=== PATIENT | female | born 1955 | race Caucasian/White ===

== ENCOUNTER 2018-04-30 11:23 | Emergency (ER) | payer BC ==
--- NOTE | 2018-04-30 12:02 | ER Document Report ---
ED Medical Screen (RME) - General Chief Complaint: Numbness Stated Complaint: NUMBNESS IN HEAD Time Seen by Provider: 04/30/18 11:46 Notes: RAPID MEDICAL EVALUATION DISCLOSURE I have seen this patient as part of a Rapid Medical Evaluation and, if applicable, placed any initially appropriate orders. The patient will be seen and fully evaluated, including a full history and physical exam, by a provider ( in Main ED or Fast Track) when a room becomes available. 62-year-old female PMH carotid stenosis 70% here with complaints of right facial and right upper extremity numbness ongoing for the past 4 hours. She did have a slight headache this morning but this has resolved. She denies any weakness of the extremities. She has surgery upcoming in the near future for her 70% carotid stenosis and was wondering if today's symptoms may be related. She does take Plavix. EXAM Right facial sensory deficit present Right upper extremity sensory deficit present Motor strength 5/5 all extremities Sensation intact all extremities other than RUE TRAVEL OUTSIDE OF THE [place] IN LAST 30 DAYS: No - Related Data Allergies/Adverse Reactions: No Known Allergies Allergy (Verified 04/30/18 11:53) Past Medical History - Social History Chew tobacco use (# tins/day): No Frequency of alcohol use: Rare Drug Abuse: None - Past Medical History Cardiac Medical History: Reports: Hx Hypercholesterolemia, Hx Hypertension Pulmonary Medical History: Reports: Hx Asthma, Hx COPD Renal/ Medical History: Denies: Hx Peritoneal Dialysis Malignancy Medical History: Reports: Hx Lung Cancer Musculoskeltal Medical History: Reports Hx Arthritis, Reports Hx Musculoskeletal Trauma Traumatic Medical History: Reports: Hx Fractures - arm and toe - Immunizations Hx Diphtheria, Pertussis, Tetanus Vaccination: Yes Physical Exam - Vital signs Vitals: Temp Pulse Resp BP Pulse Ox 98.2 F 63 20 152/76 H 95 04/30/18 11:32 04/30/18 11:32 04/30/18 11:32 04/30/18 11:32 04/30/18 11:32 Course - Vital Signs Vital signs: Temp Pulse Resp BP Pulse Ox 98.2 F 63 20 152/76 H 95 04/30/18 11:32 04/30/18 11:32 04/30/18 11:32 04/30/18 11:32 04/30/18 11:32
[2018-04-30 12:17] LABS: ABSOLUTE EOSINOPHILS # (AUTO) 0.1 10^3/uL (0.0-0.6); ABSOLUTE LYMPHOCYTES (AUTO) 1.9 10^3/uL (0.5-4.7); ABSOLUTE MONOCYTES (AUTO) 0.3 10^3/uL (0.1-1.4); ABSOLUTE NEUT (AUTO) 3.2 10^3/uL (1.7-8.2); BASOPHILS % (AUTO) 0.7 % (0-2); EOSINOPHILS % (AUTO) 1.6 % (0-6); HEMATOCRIT 36.8 % (36.0-47.0); HEMOGLOBIN 12.4 g/dL (12.0-15.5); LYMPHOCYTES % (AUTO) 34.6 % (13-45); MEAN CORPUSCULAR HEMOGLOBIN 30.2 pg (27.0-33.4); MEAN CORPUSCULAR HGB CONC 33.6 g/dL (32.0-36.0); MEAN CORPUSCULAR VOLUME 90 fl (80-97); MONOCYTES % (AUTO) 5.3 % (3-13); PLATELET COUNT 238 10^3/uL (150-450); RED BLOOD COUNT 4.09 10^6/uL (3.72-5.28); RED CELL DISTRIBUTION WIDTH 13.5 % (11.5-14.0); SEGMENTED NEUTROPHILS % (AUTO) 57.8 % (42-78); TOTAL CELLS COUNTED % (AUTO) 100 %; WHITE BLOOD COUNT 5.6 10^3/uL (4.0-10.5)
[2018-04-30 12:24] LABS: INTERNATIONAL RATION (INR) 0.95; PROTHROMBIN TIME 13.2 SEC (11.4-15.4)
[2018-04-30 12:37] LABS: ALANINE AMINOTRANSFERASE 32 U/L (9-52); ALBUMIN 4.3 g/dL (3.5-5.0); ALKALINE PHOSPHATASE 110 U/L (38-126); ANION GAP 13 (5-19); ASPARTATE AMINO TRANSFERASE 25 U/L (14-36); BILIRUBIN,DIRECT 0.4 mg/dL (0.0-0.4); BILIRUBIN,TOTAL 0.5 mg/dL (0.2-1.3); BLOOD UREA NITROGEN 14 mg/dL (7-20); CALCIUM 9.7 mg/dL (8.4-10.2); CARBON DIOXIDE 26 mmol/L (22-30); CHLORIDE 110 mmol/L (98-107); GLUCOSE 108 mg/dL (75-110); POTASSIUM 4.6 mmol/L (3.6-5.0); SODIUM 148.6 mmol/L (137-145)
--- NOTE | 2018-04-30 15:29 | RADIOLOGY REPORT (SQ) ---
EXAM DESCRIPTION: CT HEAD WITHOUT COMPLETED DATE/TIME: 04/30/2018 3:06 pm REASON FOR STUDY: eval infarct bleed, R facial RUE numbness COMPARISON: Subsequent CT angio head and neck, same day TECHNIQUE: Axial images acquired through the brain without intravenous contrast. Images reviewed wi th bone, brain and subdural windows. Additional sagittal and coronal reconstructions were generated. Images stored on PACS. All CT scanners at this facility use dose modulation, iterative reconstruction, and/or weight based d osing when appropriate to reduce radiation dose to as low as reasonably achievable (ALARA). [facility]: Dose Right [facility]: CareDose [facility]: Dose Right [facility]: Teradose 4D [facility]: [employer] RADIATION DOSE: CT Rad equipment meets quality standard of care and radiation dose reduction techniq ues were employed. CTDIvol: 53.2 mGy. DLP: 1070 mGy-cm. mGy. LIMITATIONS: None. FINDINGS: VENTRICLES: Normal size and contour. CEREBRUM: No masses. No hemorrhage. No midline shift. No evidence for acute infarction. Normal gra y/white matter differentiation. No areas of low density in the white matter. CEREBELLUM: No masses. No hemorrhage. No alteration of density. No evidence for acute infarction. EXTRAAXIAL SPACES: No fluid collections. No masses. ORBITS AND GLOBE: No intra- or extraconal masses. Normal contour of globe without masses. CALVARIUM: No fracture. PARANASAL SINUSES: No fluid or mucosal thickening. SOFT TISSUES: No mass or hematoma. OTHER: No other significant finding. IMPRESSION: NORMAL BRAIN CT WITHOUT CONTRAST. EVIDENCE OF ACUTE STROKE: NO. COMMENT: Quality ID # [id number]: Final reports with documentation of one or more dose reduction techniques (e.g., Automated exposure control, adjustment of the mA and/or kV according to patient size, use of iterative reconstruction technique) TECHNICAL DOCUMENTATION: JOB ID: [id number] [employer]- All Rights Reserved Reading location - IP/workstation name: [facility] [email or web address]]
--- NOTE | 2018-04-30 15:35 | RADIOLOGY REPORT (SQ) ---
EXAM DESCRIPTION: CTA HEAD; CTA NECK COMPLETED DATE/TIME: 04/30/2018 3:06 pm REASON FOR STUDY: h/o carotid stenosis; R facial/RUE numbness COMPARISON: None. TECHNIQUE: Axial dynamic scanning technique with dynamic contrast enhancement through the intracran ial and extra-cranial carotid and vertebral arteries. Multiplanar reconstruction. 3-D MIPS and Vol ume-rendered images acquired at the workstation and saved to PACS. Images are reviewed in soft tis murray, bone, lung windows. All CT scanners at this facility use dose modulation, iterative reconstruction, and/or weight based d osing when appropriate to reduce radiation dose to as low as reasonably achievable (ALARA). [facility]: Dose Right [facility]: CareDose [facility]: Dose Right [facility]: Teradose 4D [facility]: [employer] CONTRAST TYPE AND DOSE: contrast/concentration: Isovue 370.00 mg/ml; Total Contrast Delivered: 70.0 ml; Total Saline Delivered: 75.0 ml RENAL FUNCTION: Creatinine 0.7 LIMITATIONS: None. FINDINGS: EXTRACRANIAL CIRCULATION: AORTIC ARCH: Normal three-vessel origin. Bilateral subclavian arteries are patent. No dissection. RIGHT CAROTIDS: Right common carotid artery is unremarkable. Calcific plaque is present at the right carotid bifurcation with less than 50% proximal ICA stenosis. Cervical internal carotid artery is u nremarkable. RIGHT VERTEBRAL: Patent. No dissection. LEFT CAROTIDS: Left common carotid artery is unremarkable. Calcific plaque is present at the left ca rotid bifurcation with 50 to 69% proximal left ICA stenosis. Left cervical internal carotid artery i s otherwise unremarkable. LEFT VERTEBRAL: Patent. No dissection. LUNG APICES, NECK SOFT TISSUES: Obstructive lung disease. No neck masses or adenopathy. Airway hendricks nt. Diffuse degenerative changes cervical spine. OTHER: 3-D reconstructions confirm findings. INTRACRANIAL CIRCULATION: ANTERIOR CIRCULATION: Bilateral intracranial internal carotid arteries are unremarkable. Normal ant erior cerebral arteries, middle cerebral arteries bilaterally. Posterior communicating arteries are not visualized. POSTERIOR CIRCULATION: Intracranial vertebral arteries, basilar artery unremarkable. Cerebellar and posterior cerebral arteries are normal. BRAIN IMAGING WITH CONTRAST: No abnormal brain parenchymal enhancement. No CT evidence of acute lar ge territory ischemic change. OTHER: 3-D reconstructions confirm findings IMPRESSION: No flow significant stenosis at the carotid bifurcations. About 50% stenosis proximal r ight ICA, 50 to 69% stenosis proximal left ICA. Codominant vertebral arteries in the neck Unremarkable [place] of [place] and posterior circulation intracranially. No CT evidence of abnormal brain parenchymal enhancement. COMMENT: Quality ID #[id number]: Measurements of distal internal carotid diameter were used as the denomina tor for stenosis measurement. TECHNICAL DOCUMENTATION: JOB ID: [id number] Quality ID # [id number]: Final reports with documentation of one or more dose reduction techniques (e.g., Au tomated exposure control, adjustment of the mA and/or kV according to patient size, use of iterative reconstruction technique) 2010 [employer]- All Rights Reserved Reading location - IP/workstation name: [email or web address]
--- NOTE | 2018-04-30 15:35 | RADIOLOGY REPORT (SQ) ---
EXAM DESCRIPTION: CTA HEAD; CTA NECK COMPLETED DATE/TIME: 04/30/2018 3:06 pm REASON FOR STUDY: h/o carotid stenosis; R facial/RUE numbness COMPARISON: None. TECHNIQUE: Axial dynamic scanning technique with dynamic contrast enhancement through the intracran ial and extra-cranial carotid and vertebral arteries. Multiplanar reconstruction. 3-D MIPS and Vol ume-rendered images acquired at the workstation and saved to PACS. Images are reviewed in soft tis murray, bone, lung windows. All CT scanners at this facility use dose modulation, iterative reconstruction, and/or weight based d osing when appropriate to reduce radiation dose to as low as reasonably achievable (ALARA). [facility]: Dose Right [facility]: CareDose [facility]: Dose Right [facility]: Teradose 4D [facility]: [employer] CONTRAST TYPE AND DOSE: contrast/concentration: Isovue 370.00 mg/ml; Total Contrast Delivered: 70.0 ml; Total Saline Delivered: 75.0 ml RENAL FUNCTION: Creatinine 0.7 LIMITATIONS: None. FINDINGS: EXTRACRANIAL CIRCULATION: AORTIC ARCH: Normal three-vessel origin. Bilateral subclavian arteries are patent. No dissection. RIGHT CAROTIDS: Right common carotid artery is unremarkable. Calcific plaque is present at the right carotid bifurcation with less than 50% proximal ICA stenosis. Cervical internal carotid artery is u nremarkable. RIGHT VERTEBRAL: Patent. No dissection. LEFT CAROTIDS: Left common carotid artery is unremarkable. Calcific plaque is present at the left ca rotid bifurcation with 50 to 69% proximal left ICA stenosis. Left cervical internal carotid artery i s otherwise unremarkable. LEFT VERTEBRAL: Patent. No dissection. LUNG APICES, NECK SOFT TISSUES: Obstructive lung disease. No neck masses or adenopathy. Airway hendricks nt. Diffuse degenerative changes cervical spine. OTHER: 3-D reconstructions confirm findings. INTRACRANIAL CIRCULATION: ANTERIOR CIRCULATION: Bilateral intracranial internal carotid arteries are unremarkable. Normal ant erior cerebral arteries, middle cerebral arteries bilaterally. Posterior communicating arteries are not visualized. POSTERIOR CIRCULATION: Intracranial vertebral arteries, basilar artery unremarkable. Cerebellar and posterior cerebral arteries are normal. BRAIN IMAGING WITH CONTRAST: No abnormal brain parenchymal enhancement. No CT evidence of acute lar ge territory ischemic change. OTHER: 3-D reconstructions confirm findings IMPRESSION: No flow significant stenosis at the carotid bifurcations. About 50% stenosis proximal r ight ICA, 50 to 69% stenosis proximal left ICA. Codominant vertebral arteries in the neck Unremarkable [place] of [place] and posterior circulation intracranially. No CT evidence of abnormal brain parenchymal enhancement. COMMENT: Quality ID #[id number]: Measurements of distal internal carotid diameter were used as the denomina tor for stenosis measurement. TECHNICAL DOCUMENTATION: JOB ID: [id number] Quality ID # [id number]: Final reports with documentation of one or more dose reduction techniques (e.g., Au tomated exposure control, adjustment of the mA and/or kV according to patient size, use of iterative reconstruction technique) 2010 [employer]- All Rights Reserved Reading location - IP/workstation name: [email or web address]
--- NOTE | 2018-04-30 16:11 | ER Document Report ---
ED Neuro Symptoms/Deficit - General Chief Complaint: Numbness Stated Complaint: NUMBNESS IN HEAD Time Seen by Provider: 04/30/18 11:46 Notes: Patient says that she was just sitting outside this morning about 8 AM when suddenly the entire right side of her head went "numb". The numbness extended down the right side of the neck to the right shoulder and into the right arm. She was able to continue moving the arm and the associated body parts. Did not have any problems with her vision, speech, or balance. 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 She was having symptoms of numbness that led to the diagnosis being established of her vascular insufficiency. Patient says the symptoms have almost cleared up now. She never had any problem with her balance and was able to walk. Residual light headache. Denies nausea or vomiting.. No recent illness. No fevers. Patient has no known history of heart disease. Is a cigarette smoker. TRAVEL OUTSIDE OF THE [place] IN LAST 30 DAYS: No - Related Data Allergies/Adverse Reactions: No Known Allergies Allergy (Verified 04/30/18 11:53) Past Medical History - Social History Smoking Status: Current Every Day Smoker Chew tobacco use (# tins/day): No Frequency of alcohol use: Rare Drug Abuse: None Family History: Arthritis, CAD, DM, Hyperlipidemia, Hypertension Patient has suicidal ideation: No Patient has homicidal ideation: No - Past Medical History Cardiac Medical History: Reports: Hx Hypercholesterolemia, Hx Hypertension Pulmonary Medical History: Reports: Hx Asthma, Hx COPD Malignancy Medical History: Reports: Hx Lung Cancer Musculoskeltal Medical History: Reports Hx Arthritis, Reports Hx Musculoskeletal Trauma Traumatic Medical History: Reports: Hx Fractures - arm and toe - Immunizations Hx Diphtheria, Pertussis, Tetanus Vaccination: Yes Review of Systems - Review of Systems Notes: REVIEW OF SYSTEMS: CONSTITUTIONAL : Denies fever. EENT: Denies eye, ear, nose or mouth or throat pain or other symptoms. CARDIOVASCULAR: Denies chest pain. RESPIRATORY: Denies cough, chest congestion, or shortness of breath. GASTROINTESTINAL: Denies abdominal pain or nausea, vomiting, or diarrhea. GENITOURINARY: Denies difficulty or painful urinating, urinary frequency, blood in urine. MUSCULOSKELETAL: Denies back or neck pain. Denies joint pain or swelling. SKIN: Denies rash or skin lesions. NEUROLOGICAL: See HPI. Denies LOC or altered mental status. Light headache. Denies motor deficits. ALL OTHER SYSTEMS REVIEWED AND NEGATIVE. Physical Exam - Vital signs Vitals: Temp Pulse Resp BP Pulse Ox 98.2 F 63 20 152/76 H 95 04/30/18 11:32 04/30/18 11:32 04/30/18 11:32 04/30/18 11:32 04/30/18 11:32 Interpretation: Normal - Notes Notes: PHYSICAL EXAMINATION: GENERAL: Well-appearing, in no acute distress. Anxious. Looks much older than stated age. HEAD: Atraumatic, normocephalic. EYES: Pupils equal round and reactive to light, extraocular movements intact. ENT: oropharynx clear without exudates. Moist mucous membranes. NECK: Normal range of motion, supple. I did not hear any bruits when I listen to both carotid arteries in the neck. LUNGS: Breath sounds clear and equal bilaterally. HEART: Regular rate and rhythm without murmurs. ABDOMEN: Soft, nontender. No guarding or rebound. No masses. BACK: No tenderness throughout entire back. EXTREMITIES: Normal range of motion without pain. NEUROLOGICAL: Normal speech, normal gait. Normal sensory, motor, and reflex exams. Awake, alert, and oriented x3. PSYCH: Normal mood, normal affect. SKIN: Warm, dry, no rashes. Course - Re-evaluation Re-evalutation: 04/30/18 18:42 Patient symptoms all improved back to baseline normal for her. We obtained old CT studies from [facility] locally that were done a couple of weeks ago. We also obtained CT of the patient's head, CTA of the head and neck. Patient was shown to have some significant vascular disease and obstructions, but none appear to be life-threatening on the most mentioned on our studies here today is a 69% occlusion at the carotid artery bifurcation on the left. Patient is currently taking both aspirin as well as Plavix. She is going to be encouraged to continue to take those as prescribed. She also is being advised to follow-up with her primary care physician and other doctors in [place] as soon as possible. - Vital Signs Vital signs: Temp Pulse Resp BP Pulse Ox 98.2 F 63 18 136/80 H 100 04/30/18 11:32 04/30/18 11:32 04/30/18 16:00 04/30/18 16:00 04/30/18 16:00 - Laboratory Result Diagrams: 04/30/18 12:00 04/30/18 12:00 Laboratory results interpreted by me: 04/30/18 12:00 Sodium 148.6 H Chloride 110 H Discharge - Discharge Clinical Impression: Numbness, Paresthesia Condition: Stable Disposition: HOME, SELF-CARE Additional Instructions: Numbness or Paresthesia Definition: Numbness and tingling are decreased or abnormal sensations caused by altered sensory nerve function. Description: The feeling of having a foot "fall asleep" is a familiar one. This same combination of numbness and tingling can occur in any region of the body and may be caused by a wide variety of disorders. Sensations such as these , which occur without any associated stimulus, are called paresthesias. Other types of paresthesias include feelings of cold, warmth, burning, itching, and skin crawling. Causes: Sensation is carried to the brain by neurons (nerve cells) running from the outer parts of the body to the spinal cord in bundles called nerves. In the spinal cord, these neurons make connections with other neurons that run up to the brain. Paresthesias are caused by disturbances in the function of neurons in the sensory pathway. This disturbance can occur in the central nervous system (the brain and spinal cord), the nerve roots that are attached to the spinal cord, or the peripheral nervous system (nerves outside the brain and spinal cord). Peripheral disturbances are the most common cause of paresthesias. "Falling asleep" occurs when the blood supply to a nerve is cut off-a condition called ischemia. Ischemia usually occurs when an artery is compressed as it passes through a tightly flexed joint. Sleeping with the arms above the head or sitting with the legs tightly crossed frequently cause numbness and tingling. Direct compression of the nerve also causes paresthesias. Compression can be short-lived, as when a heavy backpack compresses the nerves passing across the shoulders. Compression may also be chronic. Chronic nerve compression occurs in entrapment syndromes. The most common example is carpal tunnel syndrome. Carpal tunnel syndrome occurs when the median nerve is compressed as it passes through a narrow channel in the wrist. Repetitive motion or prolonged vibration can cause the lining of the channel to swell and press on the nerve. Chronic nerve root compression, or radiculopathy, can occur in disk disease or spinal arthritis. Other causes of paresthesias related to disorders of the peripheral nerves include: * Metabolic or nutritional disturbances. These disturbances include diabetes, hypothyroidism (a condition caused by too little activity of the thyroid gland) , alcoholism, malnutrition, and vitamin B12 deficiency. Trauma. Trauma includes injuries that crush, sever, or pull on nerves. * Inflammation. * Connective tissue disease. These diseases include arthritis, systemic lupus erythematosus (a chronic inflammatory disease that affects many systems of the body, including the nervous system), polyarteritis nodosa (a vascular disease that causes widespread inflammation and ischemia of small and medium-size arteries), and Sj&ouml;gren's syndrome (a disorder marked by insufficient moisture in the tear ducts, salivary glands, and other glands). * Toxins. Toxins include heavy metals (metallic elements such as arsenic, lead, and mercury which can, in large amounts, cause poisoning), certain antibiotics and chemotherapy agents, solvents, and overdose of pyridoxine (vitamin B6). * Malignancy. * Infections. Infections include Lyme disease, human immunodeficiency virus (HIV ), and leprosy. * Hereditary disease. These diseases include Wvdzbku-Jdxla-Njzfw disease (a hereditary disorder that causes wasting of the leg muscles, resulting in malformation of the foot), porphyria (a group of inherited disorders in which there is abnormally increased production of substances called porphyrins), and Stas-Brown's syndrome (a hereditary disorder of the nerve root). Paresthesias can also be caused by central nervous system disturbances, including stroke, TIA (transient ischemic attack), tumor, trauma, multiple sclerosis, or infection. Symptoms: Sensory nerves supply or innervate particular regions of the body. Determining the distribution of symptoms is an important way to identify the nerves involved. For instance, the median nerve innervates the thumb, the first two fingers, half of the ring finger, and the part of the hand to which they connect. The ulnar nerve innervates the other half of the ring finger, the little finger, and the remainder of the hand. Distribution of symptoms may also aid diagnosis of the underlying disease. Diabetes usually causes a symmetrical "glove and stocking" distribution in the hands and feet. Multiple sclerosis may cause symptoms in several, widely areas. Other symptoms may accompany paresthesias, depending on the type and severity of the nerve disturbance. For instance, weakness may accompany damage to nerves that carry both sensory and motor neurons. (Motor neurons are those that carry messages outward from the brain.) Diagnosis: A careful history of the patient is needed for a diagnosis of paresthesias. The medical history should focus on the onset, duration, and location of symptoms. The history may also reveal current related medical problems and recent or past exposure to drugs, toxins, infection, or trauma. The family medical history may suggest a familial disorder. A work history may reveal repetitive motion, chronic vibration, or industrial chemical exposure. The physical and neurological examination tests for distribution of symptoms and alterations in reflexes, sensation, or strength. The distribution of symptoms may be mapped by successive stimulation over the affected area of the body. Lab tests for paresthesia may include blood tests and urinalysis to detect metabolic or nutritional abnormalities. Other tests are used to look for specific suspected causes. Nerve conduction velocity tests, electromyography, and imaging studies of the affected area may be employed. Nerve biopsy may be indicated in selected cases. Treatment: Treatment of paresthesias depends on the underlying cause. For limbs that have "fallen asleep," restoring circulation by stretching, exercising , or massaging the affected limb can quickly dissipate the numbness and tingling. If the paresthesia is caused by a chronic disease such as diabetes or occurs as a complication of treatments such as chemotherapy, most treatments are aimed at relieving symptoms. Anti-inflammatory drugs such as aspirin or ibuprofen are recommended if symptoms are mild. In more difficult cases, antidepressant drugs such as amitriptyline (Elavil) are sometimes prescribed. These drugs are given at a much lower dosage for this purpose than for relief of depression. They are thought to help because they alter the body's perception of pain. In severe cases, opium derivatives such as codeine can be prescribed. Currently trials are being done to determine whether treatment with human nerve growth factor will be effective in regenerating the damaged nerves. Alternative treatment: Several alternative treatments are available to help relieve symptoms of paresthesia. Nutritional therapy includes supplementation with B complex vitamins, especially vitamin B 12 (intramuscular injection of vitamin B12 is most effective). Vitamin supplements should be used cautiously however. Overdose of Vitamin B6 is one of the causes of paresthesias. People experiencing paresthesia should also avoid alcohol. Acupuncture and massage are said to relieve symptoms. Self-massage with aromatic oils is sometimes helpful. The application of topical ointments containing capsaicin, the substance that makes hot peppers hot, provides relief for some. It may also be helpful to wear loosely fitting shoes and clothing. None of these alternatives should be used in place of traditional therapy for the underlying condition. Prognosis: Treating the underlying disorder may reduce the occurrence of paresthesias. Paresthesias resulting from damaged nerves may persist throughout or even beyond the recovery period. The overall prognosis depends on the cause. Prevention: Preventing the underlying disorder may reduce the incidence of paresthesias. For those with frequent paresthesias caused by ischemia, changes in posture may help. NORMAL EXAM AND WORKUP: At this time, your examination and workup show no significant abnormality. No significant abnormal physical findings were noted. All laboratory, EKG, and imaging (x-ray, CT scans, ultrasound) studies that were ordered show no significant abnormality. Although your examination and all studies that were ordered showed no significant abnormal finding, there are no examinations and no studies that are 100% accurate. There is always the possibility that some abnormality could exist and not be detected with physical examination or within the limits and capabilities of laboratory and other studies. You should return or follow up as you were instructed on your visit today for further evaluation if your symptoms do not resolve. Stop Smoking You should stop smoking. The tar and chemicals in cigarette smoke are harmful. Smoking has been shown to cause: Emphysema and chronic bronchitis Lung cancer Cancer of the mouth, larynx, stomach, and pancreas Heart disease and stroke Stillbirths and miscarriage Premature aging In addition, smoking increases the chances of respiratory infections and ear infections in children of smokers, and increases the risk of cancer in persons exposed to second-hand smoke. Classes are available to help you stop smoking. If you are serious about wanting to quit, we can help arrange this therapy for you, or you can contact the local lung or cancer association. Try to stop smoking as soon as possible. Take a baby aspirin daily as you have been doing. Also, continue to take the Plavix that you are taking. Follow-up with your doctors, as scheduled. FOLLOW-UP CARE: If you have been referred to a physician for follow-up care, call the physician s office for an appointment as you were instructed or within the next two days. If you experience worsening or a significant change in your symptoms, notify the physician immediately or return to the Emergency Department at any time for re-evaluation. Referrals: RICK BRYANT MD [Primary Care Provider] - Follow up as needed
[2018-04-30 16:19] VITALS: BP 136/80
== END 2018-04-30 16:19 | disposition home or self-care (01) ==
LOC: ER 11:23
DX: I65.23 Occlusion and stenosis of bilateral carotid arteries (principal); R20.0 Anesthesia of skin; R20.2 Paresthesia of skin; R51 Headache; F17.210 Nicotine dependence, cigarettes, uncomplicated; I10 Essential (primary) hypertension; J44.9 Chronic obstructive pulmonary disease, unspecified; Z79.82 Long term (current) use of aspirin; Z79.02 Long term (current) use of antithrombotics/antiplatelets; Z85.3 Personal history of malignant neoplasm of breast; Z82.49 Family history of ischemic heart disease and other diseases of the circulatory system
CPT/HCPCS: 36415; 70450; 70496; 70498; 80053; 84484; 85025; 85610; 85730; 99284

== ENCOUNTER 2018-08-15 21:10 | Inpatient (IN) | payer BC ==
[2018-08-15] MEDS ORDERED: NORMAL SALINE 500 ML IV ONE (21:17)
[2018-08-15] MEDS ORDERED: KETOROLAC TROMETHAMINE INJ/PF 30 MG/1 ML SDV IV ONE (22:25)
--- NOTE | 2018-08-15 22:25 | ER Document Report ---
ED GI/ - General Chief Complaint: Abdominal Pain Stated Complaint: ABDOMINAL PAIN Time Seen by Provider: 08/15/18 22:13 Mode of Arrival: Ambulatory Information source: Patient, Relative, FOR[facility]LY [facility], [facility]–1983 Records Notes: This 62-year-old female patient comes emergency room complaining of onset severe right lower quadrant abdominal pain which is been constant dull aching since about 3:30 PM today. She has had "upset stomach" for the past 2 days. [place] and noticed some discomfort. There is no vomiting. There is no fever. TRAVEL OUTSIDE OF THE [place] IN LAST 30 DAYS: No - Related Data Allergies/Adverse Reactions: No Known Allergies Allergy (Verified 04/30/18 11:53) Past Medical History - General Information source: Patient, Relative, FORMERLY [facility], 1929–1983 Records - Social History Smoking Status: Current Every Day Smoker Cigarette use (# per day): Yes - 1PPD Chew tobacco use (# tins/day): No Smoking Education Provided: No Frequency of alcohol use: Rare Drug Abuse: None Occupation: Retired Lives with: Spouse/Significant other Family History: Arthritis, CAD, DM, Hyperlipidemia, Hypertension - Past Medical History Cardiac Medical History: Reports: Hx Hypercholesterolemia, Hx Hypertension, Hx Peripheral Vascular Disease - Carotid artery disease Pulmonary Medical History: Reports: Hx Asthma, Hx COPD Neurological Medical History: Reports: None Endocrine Medical History: Reports: None Renal/ Medical History: Reports: None Malignancy Medical History: Reports: Hx Lung Cancer - Had RUL lobectomy for small cancerous spot, did not have RT or chemo GI Medical History: Reports: None Musculoskeletal Medical History: Reports Hx Arthritis, Reports Hx Musculoskeletal Trauma Skin Medical History: Reports None Psychiatric Medical History: Reports: None Traumatic Medical History: Reports: Hx Fractures - arm and toe Past Surgical History: Reports: Hx Neurologic Surgery - Left carotid stent in June 2018, Other - Right upper lobe lobectomy - Immunizations Hx Diphtheria, Pertussis, Tetanus Vaccination: Yes Review of Systems - Review of Systems Constitutional: No symptoms reported EENT: No symptoms reported Cardiovascular: No symptoms reported Respiratory: No symptoms reported Gastrointestinal: No symptoms reported Genitourinary: No symptoms reported Female Genitourinary: Post menopausal Musculoskeletal: Back pain, Joint pain Skin: No symptoms reported Hematologic/Lymphatic: No symptoms reported Neurological/Psychological: No symptoms reported Physical Exam - Vital signs Vitals: Temp Pulse Resp BP Pulse Ox 98.6 F 92 16 123/82 97 08/15/18 21:16 08/15/18 21:16 08/15/18 21:16 08/15/18 21:16 08/15/18 21:16 Interpretation: Normal - General General appearance: Alert, Anxious In distress: Mild - HEENT Head: Normocephalic, Atraumatic Eyes: Normal Pupils: PERRL - Respiratory Respiratory status: No respiratory distress Breath sounds: Other - Coarse breath sounds consistent with long smoking history and COPD - Cardiovascular Rhythm: Regular Heart sounds: Normal auscultation Murmur: No - Abdominal Inspection: Normal Bowel sounds: Normal Tenderness: Tender - Patient is exquisitely tender in the right lower quadrant/ pelvic region - Back Back: Normal. No: CVA tenderness - Extremities General upper extremity: Normal inspection General lower extremity: Normal inspection - Neurological Neuro grossly intact: Yes - Psychological Associated symptoms: Normal affect, Normal mood, Anxious - Skin Skin Temperature: Warm Skin Moisture: Dry Skin Color: Normal Course - Vital Signs Vital signs: Temp Pulse Resp BP Pulse Ox 98.6 F 92 16 123/82 97 08/15/18 21:16 08/15/18 21:16 08/15/18 21:16 08/15/18 21:16 08/15/18 21:16 - Laboratory Result Diagrams: 08/15/18 22:33 08/15/18 22:33 Laboratory results interpreted by me: 08/15/18 08/15/18 22:33 22:33 WBC 14.0 H Seg Neutrophils % 85.4 H Lymphocytes % 10.5 L Absolute Neutrophils 11.9 H Glucose 140 H - Diagnostic Test Radiology reviewed: Reports reviewed - Mild inflammatory changes in the cecum and a normal caliber but fluid-filled appendix suggesting appendicitis - EKG Interpretation by [place] EKG shows normal: Sinus rhythm, [place], QRS Complexes, ST-T Waves. abnormal: Intervals - Borderline prolonged QT interval Rate: Normal - 79 Rhythm: Arrthymia - Consults Dr. Blakely Time consulted: 23:30 Consulted provider: will come to ER Discharge - Discharge Clinical Impression: Right lower quadrant abdominal pain Leukocytosis Qualifiers: Leukocytosis type: unspecified Qualified Code(s): D72.829 - Elevated white blood cell count, unspecified Condition: Stable Disposition: ADMITTED INPATIENT Admitting Provider: Surgicalist Unit Admitted: Surgical Floor Referrals: RICK BRYATN MD [NO LOCAL MD] - Follow up as needed
[2018-08-15 22:50] LABS: ABSOLUTE LYMPHOCYTES (AUTO) 1.5 10^3/uL (0.5-4.7); ABSOLUTE MONOCYTES (AUTO) 0.5 10^3/uL (0.1-1.4); ABSOLUTE NEUT (AUTO) 11.9 10^3/uL (1.7-8.2); BASOPHILS % (AUTO) 0.2 % (0-2); EOSINOPHILS % (AUTO) 0.2 % (0-6); HEMATOCRIT 36.7 % (36.0-47.0); HEMOGLOBIN 12.4 g/dL (12.0-15.5); LYMPHOCYTES % (AUTO) 10.5 % (13-45); MEAN CORPUSCULAR HEMOGLOBIN 30.3 pg (27.0-33.4); MEAN CORPUSCULAR HGB CONC 33.9 g/dL (32.0-36.0); MEAN CORPUSCULAR VOLUME 90 fl (80-97); MONOCYTES % (AUTO) 3.7 % (3-13); PLATELET COUNT 237 10^3/uL (150-450); RED CELL DISTRIBUTION WIDTH 13.7 % (11.5-14.0); SEGMENTED NEUTROPHILS % (AUTO) 85.4 % (42-78); TOTAL CELLS COUNTED % (AUTO) 100 %
[2018-08-15 23:06] LABS: ALANINE AMINOTRANSFERASE 39 U/L (9-52); ALBUMIN 4.3 g/dL (3.5-5.0); ALKALINE PHOSPHATASE 117 U/L (38-126); ANION GAP 12 (5-19); ASPARTATE AMINO TRANSFERASE 23 U/L (14-36); BILIRUBIN,DIRECT 0.2 mg/dL (0.0-0.4); BILIRUBIN,TOTAL 0.7 mg/dL (0.2-1.3); BLOOD UREA NITROGEN 16 mg/dL (7-20); CALCIUM 9.8 mg/dL (8.4-10.2); CARBON DIOXIDE 22 mmol/L (22-30); CHLORIDE 106 mmol/L (98-107); CREATINE KINASE 114 U/L (30-135); GLUCOSE 140 mg/dL (75-110); LIPASE 74.8 U/L (23-300); POTASSIUM 3.9 mmol/L (3.6-5.0); SODIUM 139.6 mmol/L (137-145)
--- NOTE | 2018-08-15 23:21 | RADIOLOGY REPORT (SQ) ---
CT ABDOMEN WITHOUT IV CONTRAST HISTORY: RLQ abd pain COMPARISON: None. TECHNIQUE: CT scan of the abdomen and pelvis. This exam was performed according to our departmental dose-optimization program, which includes automated exposure control, adjustment of the mA and/or kV according to patient size and/or use of iterative reconstruction technique. FINDINGS: Paraseptal and centrilobular emphysema is seen. No pleural or pericardial effusions. Liver, gallbladder, spleen, pancreas, and adrenal glands are unremarkable. 2 mm nonobstructing stone in the lower pole right kidney. No obstructive uropathy. Calcified fibroid in the uterus. No bowel obstruction. Appendix is fluid-filled and measures 6 mm in diameter. Mild wall thickening of the cecum with mild surrounding inflammatory stranding. No free air or free fluid. Normal caliber aorta with atherosclerotic calcifications. No acute osseous findings. IMPRESSION: Appendix is fluid-filled and measures 6 mm in diameter. Mild wall thickening of the cecum with mild surrounding inflammatory stranding. Findings are ambiguous for appendicitis. No free air or abscess is seen. 2 mm nonobstructing stone in the lower pole right kidney.
[2018-08-15 23:33] LABS: APPEARANCE,URINE SLIGHTLY-CLOUDY; BILIRUBIN,URINE NEGATIVE (NEGATIVE); COLOR,URINE YELLOW; GLUCOSE, URINE NEGATIVE (NEGATIVE); KETONES,URINE NEGATIVE (NEGATIVE); LEUKOCYTE ESTERASE,URINE NEGATIVE (NEGATIVE); NITRITE,URINE NEGATIVE (NEGATIVE); PROTEIN,URINE NEGATIVE (NEGATIVE); URINE SPECIFIC GRAVITY 1.021; UROBILINOGEN,URINE NEGATIVE mg/dL (<2.0)
[2018-08-15] MEDS ORDERED: MORPHINE SULFATE 10 MG/ML INJ IV ONE (23:45)
[2018-08-15] MEDS ORDERED: ONDANSETRON HCL INJ/PF 4 MG/2 ML SDV IV ONE (23:45)
[2018-08-15] MEDS ORDERED: ERTAPENEM SODIUM INJ 1 GM VIAL IV ONE (23:45)
[2018-08-16] MEDS ORDERED: ONDANSETRON HCL INJ/PF 4 MG/2 ML SDV IV PRN ×2 (00:21→11:55)
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
[2018-08-16] MEDS ORDERED: ACETAMINOPHEN INJ/PF 1000 MG/100 ML SDV IV ONE (00:45)
[2018-08-16] MEDS: RINGERS SOLUTION,LACTATED 1,000 ML IV PRN ×2 (03:45→17:25)
--- NOTE | 2018-08-16 08:49 | EKG REPORT ---
SEVERITY:- BORDERLINE ECG - SINUS ARRHYTHMIA, RATE 65-93 BORDERLINE PROLONGED QT INTERVAL : Confirmed by: Makeda Wood MD 16-Aug-2018 08:48:46
[2018-08-16] MEDS ORDERED: LIDOCAINE 2% INJ-PF (20 MG/ML) 10 ML AMPUL ONE (09:37)
[2018-08-16] MEDS ORDERED: MIDAZOLAM 2 MG/2 ML INJ ONE (09:38)
[2018-08-16] MEDS ORDERED: IPRATROPIUM/ALBUTEROL 0.5-2.5 MG/3 ML AMPUL NEB ONE (09:38)
[2018-08-16] MEDS ORDERED: FENTANYL CITRATE INJ/PF 100 MCG/2 ML AMPUL ONE (09:38)
[2018-08-16] MEDS ORDERED: PROPOFOL INJ 200 MG/20 ML VIAL IV ONE (09:39)
[2018-08-16] MEDS ORDERED: ACETAMINOPHEN 1,000 MG/100 ML RTUPB IV ONE (09:39)
[2018-08-16] MEDS ORDERED: BUPIVACAINE HCL 0.5 % INJ/PF 30 ML SDV ONE (09:44)
[2018-08-16] MEDS ORDERED: EPHEDRINE SULFATE INJ 50 MG/1 ML AMPULE ONE (10:22)
[2018-08-16] MEDS ORDERED: MORPHINE SULFATE 10 MG/ML INJ IV PRN (10:44)
[2018-08-16] MEDS ORDERED: PROMETHAZINE HCL INJ 25 MG/1 ML VIAL IV PRN (10:44)
[2018-08-16] MEDS ORDERED: FENTANYL CITRATE INJ/PF 100 MCG/2 ML AMPUL IV PRN ×3 (10:44)
[2018-08-16] MEDS ORDERED: DIPHENHYDRAMINE HCL 50 MG/ML VIAL IV PRN (10:44)
[2018-08-16] MEDS ORDERED: BUPIVACAINE INJ/PF LIPOSOME/PF 266 MG/20 ML SDV ONE (11:02)
[2018-08-16] MEDS: FENTANYL CITRATE INJ/PF 100 MCG/2 ML AMPUL ONE ×4 (12:07→12:22)
[2018-08-16] MEDS ORDERED: SUGAMMADEX SODIUM 200 MG/2 ML SDV IV ONE (12:10)
--- NOTE | 2018-08-16 12:14 | Operative Report ---
Operative Report DATE OF SURGERY: 08/16/18 PREOPERATIVE DIAGNOSIS: 1. Acute abdomen consistent with acute appendicitis, possible cecal pathology. 2. Atherosclerotic peripheral vascular disease. 3. Active heavy smoker. 4. Pharmacologically anticoagulated POSTOPERATIVE DIAGNOSIS: Same with infarcting cecum OPERATION: 1. Diagnostic laparoscopy. 2. Exploratory laparotomy. 3. Ileocecectomy with ileo-right colonic stapled anastomosis. 4. Placement of large Aidan drain pelvis SURGEON: ROMAIN BLAKELY ANESTHESIA: GA TISSUE REMOVED OR ALTERED: Terminal ileum and cecum COMPLICATIONS: None ESTIMATED BLOOD LOSS: 75 cc INTRAOPERATIVE FINDINGS: See below PROCEDURE: The patient was taken to the preop holding area to the main operating room and general anesthesia was induced. A Zapata catheter was inserted, abdomen exposed , prepped and draped in sterile fashion and instrumentation set up for laparoscopic surgery. Surgical plan surgical timeout were conducted. Skin was marked for 3 port laparoscopic appendectomy. The skin above the umbilicus, above the suprapubic area, and the left lower quadrant were all anesthetized with quarter percent Marcaine. A small vertical incision was made above the umbilicus, Veress needle inserted the peritoneal cavity pneumoperitoneum was established. Veress needle was removed, and a 5 mm 5 mm flexible scope was inserted. Visualization of the peritoneal cavity revealed purulent drainage in the pelvis but no pat pus or blood. We immediately identified ischemic changes to the cecum at the level of the serosa with some named pericolonic fat. 2 additional ports were placed both 5 mm one in the suprapubic area and one in the left lower quadrant. We visualized the ileo-colonic anatomy. The appendix although edematous did not appeal grossly infected. The principal problem appeared to be full- thickness ischemia to the cecum. I felt that the cecum needed to be removed under the circumstances. I initially contemplated performing the operation laparoscopically however due to the demands of the surgeon and the operating team, and the need to perform an expeditious operation in this high risk patient , I recommended conversion to an open procedure. All ports and instruments were removed from the patient's abdomen, skin Erin times with quarter percent Marcaine and 12 cm midline incision was made above from below the umbilicus. Upon entering the peritoneal cavity, there was a little bit of bleeding from opening in the ileocolonic mesentery. This was managed by gentle compression. Using a combination of blunt, electrocautery, and LigaSure dissection, the terminal ileum, cecum, proximal and mid right colon were mobilized by dividing the white line of Toldt, sweeping the retroperitoneum laterally and drawing the right colon medially. A suitable site for transection of the terminal ileum was chosen approximately 8 cm proximal to the ileocecal valve. Of note upon entering the peritoneal cavity, and throughout the course of the dissection, the entire small bowel, and the remainder of the colon appeared viable. Patient 's blood pressure was in the upper 80s to low 90s likely due to anesthetic effect. She was making adequate urine and she did not appear to be toxic. The blood supply to the mesentery appeared and felt to be intact with palpation of the mesenteric pulses. The terminal ileum was transected with a single firing of the LES 55 stapler. A suitable site for transection of the right or ascending colon was chosen approximately midway between the cecum and the hepatic flexure. The reason for performing a limited operation was my expectation that we are dealing with an ischemic process and not a malignancy based on the current appearance of the pathoanatomy, and the patient's reportedly normal colonoscopy 2 years ago. The right colon was transected with a single firing of the LES 55 stapler. A limited meso colonic resection was then performed taking down the mesocolon with LigaSure device as well as clamps and 0 Vicryl ties. The specimen was lifted off the field and examined by Dr. Blakely on the back table. It was opened longitudinally from terminal ileum to the ascending colon. The findings were significant for full-thickness ischemia, and likely hemorrhagic infarction of the cecum in a moderately broad distribution. There is no gross evidence of perforation; there was no apparent mass seen or felt. Specimen was sent to pathology for final analysis. We returned the peritoneal cavity, and elected to proceed with a primary ileo- ascending colonic anastomosis. This was affected by bringing the antimesenteric borders of the terminal ileum and ascending colon and approximating them with 3-0 Vicryl suture. A colotomy and an enterotomy made with Coker scissors, and the LES 55 stapler was used to affect the anastomosis. There was no bleeding from the staple line anteriorly. The openings of the colon and small bowel were closed with a single firing of a TA 60 stapler. I reinforced the staple line with 3-0 Vicryl suture and the mesenteric defect closed with 3-0 Vicryl suture. At this point I reinspected the peritoneal cavity including the liver, stomach, gallbladder, and the greater omentum and transverse colon there was no visible or palpable pathology. With a retractor holding up the inferior abdominal wall, I could feel the gynecologic organs which appear to be grossly intact. We irrigated the peritoneal cavity out with 2 L of saline. A large Aidan drain was brought through the suprapubic port site incision and secured to the skin with 2-0 Prolene suture At this point felt the operation was complete. Sponge and counts are correct. I did not feel an nasogastric tube was necessary. The abdominal wall was closed with 2 double-stranded #1 PDS sutures, skin approximated katlyn, left lower quadrant laparoscopy site closed with a staple and subcutaneous tissue anesthetized with Exparel Patient was extubated and taken to recovery room in stable condition. Abdominal binder fixed.
[2018-08-16] MEDS ORDERED: ROCURONIUM BROMIDE INJ 50 MG/5 ML VIAL IV ONE (13:38)
[2018-08-16] MEDS ORDERED: PHENYLEPHRINE HCL INJ/PF 10 MG/1 ML SDV ONE (13:38)
[2018-08-16] MEDS ORDERED: GLYCOPYRROLATE 1 MG/5 ML SYRINGE ONE (13:38)
[2018-08-16] MEDS ORDERED: SUCCINYLCHOLINE CHLORIDE INJ 200 MG/10 ML VIAL ONE (13:38)
[2018-08-16] MEDS: ACETAMINOPHEN INJ/PF 1000 MG/100 ML SDV IV SCH ×4 (14:17→17:25)
[2018-08-16] MEDS: KETOROLAC TROMETHAMINE INJ/PF 30 MG/1 ML SDV IV PRN (20:58)
[2018-08-16] MEDS: ERTAPENEM SODIUM 1 GM in NORMAL SALINE 50 ML IV SCH (21:03)
[2018-08-16] MEDS ORDERED: ERTAPENEM SODIUM 1 GM in NORMAL SALINE 50 ML IV SCH ×4 (22:00)
[2018-08-17] MEDS: RINGERS SOLUTION,LACTATED 1,000 ML IV PRN ×3 (00:14→21:30)
[2018-08-17] MEDS: ACETAMINOPHEN INJ/PF 1000 MG/100 ML SDV IV SCH ×7 (00:14→23:33)
[2018-08-17] MEDS: KETOROLAC TROMETHAMINE INJ/PF 30 MG/1 ML SDV IV PRN ×2 (05:05→16:13)
[2018-08-17 06:16] LABS: ABSOLUTE LYMPHOCYTES (AUTO) 1.3 10^3/uL (0.5-4.7); ABSOLUTE MONOCYTES (AUTO) 0.4 10^3/uL (0.1-1.4); ABSOLUTE NEUT (AUTO) 6.2 10^3/uL (1.7-8.2); BASOPHILS % (AUTO) 0.3 % (0-2); EOSINOPHILS % (AUTO) 0.1 % (0-6); HEMATOCRIT 32.4 % (36.0-47.0); HEMOGLOBIN 11.3 g/dL (12.0-15.5); MEAN CORPUSCULAR HEMOGLOBIN 30.6 pg (27.0-33.4); MEAN CORPUSCULAR HGB CONC 34.7 g/dL (32.0-36.0); MEAN CORPUSCULAR VOLUME 88 fl (80-97); MONOCYTES % (AUTO) 4.5 % (3-13); PLATELET COUNT 182 10^3/uL (150-450); RED BLOOD COUNT 3.68 10^6/uL (3.72-5.28); RED CELL DISTRIBUTION WIDTH 13.5 % (11.5-14.0); SEGMENTED NEUTROPHILS % (AUTO) 79.1 % (42-78); TOTAL CELLS COUNTED % (AUTO) 100 %; WHITE BLOOD COUNT 7.9 10^3/uL (4.0-10.5)
[2018-08-17 06:37] LABS: ANION GAP 9 (5-19); BLOOD UREA NITROGEN 6 mg/dL (7-20); CARBON DIOXIDE 24 mmol/L (22-30); CHLORIDE 108 mmol/L (98-107); GLUCOSE 98 mg/dL (75-110); POTASSIUM 3.5 mmol/L (3.6-5.0); SODIUM 140.9 mmol/L (137-145)
--- NOTE | 2018-08-17 09:19 | PDOC PROGRESS REPORT ---
Subjective Progress Note for:: 08/17/18 Subjective:: Poor pain control. Patient states that she has not had a narcotic problem in a number of years. She apparently had lung surgery and was placed on narcotics several years ago without problems. Reason For Visit: RIGHT LOWER QUADRANT ABDOMINAL PAIN,LEUKOCYTOSIS Physical Exam Vital Signs: Temp Pulse Resp BP Pulse Ox 98.1 F 74 15 134/74 H 93 08/17/18 08:14 08/17/18 08:14 08/17/18 08:14 08/17/18 08:14 08/17/18 08:14 Intake & Output 08/16/18 08/17/18 08/18/18 06:59 06:59 06:59 Intake Total 5900 Output Total 500 5865 450 Balance -500 35 -450 Weight 61.689 kg General appearance: PRESENT: no acute distress, cooperative Respiratory exam: PRESENT: clear to auscultation geronimo Cardiovascular exam: PRESENT: RRR GI/Abdominal exam: PRESENT: other - Soft, appropriate tenderness, drain output is slightly blood-tinged. No peritoneal signs Extremities exam: PRESENT: other - No swelling and no tenderness Results Laboratory Results: 08/17/18 06:04 08/17/18 06:04 08/16/18 08/17/18 08/17/18 09:02 06:04 06:04 WBC 7.9 RBC 3.68 L Hgb 11.3 L Hct 32.4 L MCV 88 MCH 30.6 MCHC 34.7 RDW 13.5 Plt Count 182 Seg Neutrophils % 79.1 H Lymphocytes % 16.0 Monocytes % 4.5 Eosinophils % 0.1 Basophils % 0.3 Absolute Neutrophils 6.2 Absolute Lymphocytes 1.3 Absolute Monocytes 0.4 Absolute Eosinophils 0.0 Absolute Basophils 0.0 Sodium 140.9 Potassium 3.5 L Chloride 108 H Carbon Dioxide 24 Anion Gap 9 BUN 6 L Creatinine 0.54 Est GFR ( Amer) > 60 Est GFR (Non-Af Amer) > 60 Glucose 98 Calcium 9.0 Blood Type B NEGATIVE Antibody Screen NEGATIVE Impressions: Limited or Localized CT 08/15/18 22:23 IMPRESSION: Appendix is fluid-filled and measures 6 mm in diameter. Mild wall thickening of the cecum with mild surrounding inflammatory stranding. Findings are ambiguous for appendicitis. No free air or abscess is seen. 2 mm nonobstructing stone in the lower pole right kidney. Assessment & Plan - Diagnosis (1) Ischemic cecum Is this a current diagnosis for this admission?: Yes Plan: Status post right hemicolectomy. Will try morphine for pain control. I suspect that her pain is just postoperative pain. She is not tachycardic and her white blood cell count is normal and she has a soft mildly tender abdomen that is appropriate at this point after her recent operation. She does have a carotid stent for which she has she has been on anticoagulation prior to her operation. Her drain output still has blood tinge and I am reluctant to restart her anticoagulation today. I will discuss her case with her vascular surgeon (Dr Leslie) about recommendation for her anticoagulation management. I have called his office and left him a message. Hold off diet for right now.
[2018-08-17] MEDS ORDERED: MORPHINE SULFATE 10 MG/ML INJ IV ONE (10:00)
[2018-08-17] MEDS ORDERED: ERTAPENEM SODIUM 1 GM in NORMAL SALINE 50 ML IV SCH (10:00)
[2018-08-17] MEDS: MORPHINE SULFATE 10 MG/ML INJ IV PRN ×2 (17:23→23:32)
[2018-08-17] MEDS: ALBUTEROL SULFATE 0.083% NEB 2.5 MG/3 ML AMPUL NEB PRN (21:21)
[2018-08-17] MEDS: ERTAPENEM SODIUM 1 GM in NORMAL SALINE 50 ML IV SCH (22:33)
[2018-08-17] MEDS ORDERED: FAMOTIDINE INJ/PF 20 MG/2 ML SDV IV ONE (22:45)
[2018-08-18] MEDS: ACETAMINOPHEN INJ/PF 1000 MG/100 ML SDV IV SCH ×3 (06:23→17:45)
[2018-08-18] MEDS: RINGERS SOLUTION,LACTATED 1,000 ML IV PRN ×2 (06:23→12:08)
[2018-08-18] MEDS: FAMOTIDINE INJ/PF 20 MG/2 ML SDV IV SCH ×2 (09:05→17:45)
[2018-08-18] MEDS: MORPHINE SULFATE 10 MG/ML INJ IV PRN ×3 (09:05→21:42)
--- NOTE | 2018-08-18 11:43 | PDOC PROGRESS REPORT ---
Subjective Progress Note for:: 08/18/18 Subjective:: Feels better. But still has some nausea this morning. No emesis. Not passing gas. Reason For Visit: RIGHT LOWER QUADRANT ABDOMINAL PAIN Physical Exam Vital Signs: Temp Pulse Resp BP Pulse Ox 97.9 F 71 14 113/71 94 08/18/18 07:30 08/18/18 09:18 08/18/18 09:18 08/18/18 07:30 08/18/18 09:18 Intake & Output 08/17/18 08/18/18 08/19/18 06:59 06:59 06:59 Intake Total 5950 2270 Output Total 5865 2345 Balance 85 -75 General appearance: PRESENT: no acute distress, cooperative Respiratory exam: PRESENT: clear to auscultation geronimo Cardiovascular exam: PRESENT: RRR GI/Abdominal exam: PRESENT: other - Soft, nondistended, mild appropriate tenderness to palpation. Drain output is serosanguineous and nonbloody. Results Laboratory Results: 08/17/18 06:04 08/17/18 06:04 Impressions: Limited or Localized CT 08/15/18 22:23 IMPRESSION: Appendix is fluid-filled and measures 6 mm in diameter. Mild wall thickening of the cecum with mild surrounding inflammatory stranding. Findings are ambiguous for appendicitis. No free air or abscess is seen. 2 mm nonobstructing stone in the lower pole right kidney. Assessment & Plan - Diagnosis (1) Ischemic cecum Is this a current diagnosis for this admission?: Yes Plan: Status post right hemicolectomy. Good pain control. Patient looks good other than nausea but her abdomen is soft and it is not distended. Will start diet when the nausea has resolved. Encourage ambulation. I have discussed with Dr. Leslie (patient's neurosurgeon) about her anticoagulation and he wanted it restarted as soon as reasonably possible. I have discussed her anticoagulation status with Dr. Blakely who is her surgeon and he feels comfortable restarting it. Her abdominal drain will be pulled today. We will restart her anticoagulation tonight.
[2018-08-18] MEDS: GABAPENTIN 300 MG CAPSULE PO SCH (13:46)
[2018-08-18] MEDS: LANSOPRAZOLE 30 MG TAB.RAP.DR PO SCH (17:46)
[2018-08-18] MEDS: ERTAPENEM SODIUM 1 GM in NORMAL SALINE 50 ML IV SCH (21:43)
[2018-08-18] MEDS ORDERED: (PENDING PHARMACY ID) (Olmesartan Medoxomil [Benicar] 20 MG) PO SCH (22:00)
[2018-08-19] MEDS: ATORVASTATIN CALCIUM 80 MG TABLET PO SCH ×2 (00:37→21:56)
[2018-08-19] MEDS: GABAPENTIN 300 MG CAPSULE PO SCH ×4 (00:37→21:56)
[2018-08-19] MEDS: LOSARTAN POTASSIUM 50 MG TABLET PO SCH ×4 (00:37→22:07)
[2018-08-19] MEDS: ACETAMINOPHEN INJ/PF 1000 MG/100 ML SDV IV SCH ×2 (00:44→06:29)
[2018-08-19] MEDS: ALBUTEROL SULFATE 0.083% NEB 2.5 MG/3 ML AMPUL NEB PRN (01:08)
[2018-08-19] MEDS: RINGERS SOLUTION,LACTATED 1,000 ML IV PRN ×2 (04:45→18:39)
[2018-08-19] MEDS: MORPHINE SULFATE 10 MG/ML INJ IV PRN (04:50)
[2018-08-19] MEDS: TICAGRELOR 90 MG TABLET PO SCH ×3 (06:18→18:39)
[2018-08-19 06:23] LABS: HEMATOCRIT 30.6 % (36.0-47.0); HEMOGLOBIN 10.7 g/dL (12.0-15.5); MEAN CORPUSCULAR HEMOGLOBIN 30.6 pg (27.0-33.4); MEAN CORPUSCULAR HGB CONC 34.8 g/dL (32.0-36.0); MEAN CORPUSCULAR VOLUME 88 fl (80-97); PLATELET COUNT 190 10^3/uL (150-450); RED BLOOD COUNT 3.49 10^6/uL (3.72-5.28); RED CELL DISTRIBUTION WIDTH 13.2 % (11.5-14.0); WHITE BLOOD COUNT 6.8 10^3/uL (4.0-10.5)
[2018-08-19] MEDS: LANSOPRAZOLE 30 MG TAB.RAP.DR PO SCH ×2 (06:29→17:14)
[2018-08-19 06:56] LABS: ANION GAP 12 (5-19); BLOOD UREA NITROGEN 6 mg/dL (7-20); CALCIUM 8.8 mg/dL (8.4-10.2); CARBON DIOXIDE 25 mmol/L (22-30); CHLORIDE 103 mmol/L (98-107); GLUCOSE 96 mg/dL (75-110); POTASSIUM 3.2 mmol/L (3.6-5.0); SODIUM 139.5 mmol/L (137-145)
[2018-08-19] MEDS: AMLODIPINE BESYLATE 5 MG TABLET PO SCH (10:06)
[2018-08-19] MEDS: TIOTROPIUM BROMIDE DPI 5 CAP/KIT (18 MCG/CAP) IH SCH (10:07)
[2018-08-19] MEDS: ASPIRIN 81 MG TABLET, ENT COATED PO SCH (10:07)
[2018-08-19] MEDS: FAMOTIDINE INJ/PF 20 MG/2 ML SDV IV SCH ×2 (10:07→17:14)
[2018-08-19] MEDS ORDERED: MORPHINE SULFATE 10 MG/ML INJ IV PRN (10:15)
[2018-08-19] MEDS: HYDROCODONE/ACETAMINOPHEN 10-325 MG TABLET PO PRN ×2 (10:36→17:14)
--- NOTE | 2018-08-19 13:37 | PDOC PROGRESS REPORT ---
Subjective Progress Note for:: 08/19/18 Reason For Visit: RIGHT LOWER QUADRANT ABDOMINAL PAIN Physical Exam Vital Signs: Temp Pulse Resp BP Pulse Ox 98.0 F 82 18 134/70 H 91 L 08/19/18 03:54 08/19/18 03:54 08/19/18 03:54 08/19/18 03:54 08/19/18 03:54 Intake & Output 08/18/18 08/19/18 08/20/18 06:59 06:59 06:59 Intake Total 2270 2147 Output Total 2345 1315 Balance -75 832 Results Laboratory Results: 08/19/18 06:07 08/19/18 06:07 08/19/18 08/19/18 06:07 06:07 WBC 6.8 RBC 3.49 L Hgb 10.7 L Hct 30.6 L MCV 88 MCH 30.6 MCHC 34.8 RDW 13.2 Plt Count 190 Sodium 139.5 Potassium 3.2 L Chloride 103 Carbon Dioxide 25 Anion Gap 12 BUN 6 L Creatinine 0.55 Est GFR ( Amer) > 60 Est GFR (Non-Af Amer) > 60 Glucose 96 Calcium 8.8 Impressions: Limited or Localized CT 08/15/18 22:23 IMPRESSION: Appendix is fluid-filled and measures 6 mm in diameter. Mild wall thickening of the cecum with mild surrounding inflammatory stranding. Findings are ambiguous for appendicitis. No free air or abscess is seen. 2 mm nonobstructing stone in the lower pole right kidney. Assessment & Plan - Diagnosis (1) Ischemic cecum Is this a current diagnosis for this admission?: Yes - Plan Summary Plan Summary: This is a 62-year-old female status post right hemicolectomy for a necrotic cecum. Patient is doing well today. She still has not passed flatus, but she denies nausea or vomiting. She is requesting liquids to drink. I will allow her to begin a liquid diet. I have encouraged her that if she experiences nausea she should stop oral intake. Her incision is clean, dry, and intact. I have encouraged her to ambulate and use her incentive spirometer. Awaiting bowel function. Hypokalemia: Replace with oral potassium.
[2018-08-19] MEDS: POTASSIUM CHLORIDE 10 MEQ CAPSULE.ER PO SCH ×2 (14:28→21:57)
[2018-08-19] MEDS: ERTAPENEM SODIUM 1 GM in NORMAL SALINE 50 ML IV SCH (21:55)
[2018-08-20] MEDS: RINGERS SOLUTION,LACTATED 1,000 ML IV PRN (04:40)
[2018-08-20] MEDS: LANSOPRAZOLE 30 MG TAB.RAP.DR PO SCH ×2 (05:47→17:24)
[2018-08-20] MEDS: TICAGRELOR 90 MG TABLET PO SCH ×2 (05:47→17:24)
[2018-08-20] MEDS: GABAPENTIN 300 MG CAPSULE PO SCH ×3 (05:47→21:17)
[2018-08-20 07:14] LABS: ANION GAP 10 (5-19); BLOOD UREA NITROGEN 5 mg/dL (7-20); CALCIUM 8.9 mg/dL (8.4-10.2); CARBON DIOXIDE 25 mmol/L (22-30); CHLORIDE 105 mmol/L (98-107); GLUCOSE 97 mg/dL (75-110); SODIUM 140.3 mmol/L (137-145)
[2018-08-20] MEDS: HYDROCODONE/ACETAMINOPHEN 10-325 MG TABLET PO PRN ×3 (07:54→17:24)
[2018-08-20] MEDS: FAMOTIDINE INJ/PF 20 MG/2 ML SDV IV SCH ×2 (09:44→17:24)
[2018-08-20] MEDS: TIOTROPIUM BROMIDE DPI 5 CAP/KIT (18 MCG/CAP) IH SCH (09:44)
[2018-08-20] MEDS: ASPIRIN 81 MG TABLET, ENT COATED PO SCH (09:45)
[2018-08-20] MEDS: AMLODIPINE BESYLATE 5 MG TABLET PO SCH (09:45)
--- NOTE | 2018-08-20 11:28 | PDOC PROGRESS REPORT ---
Subjective Progress Note for:: 08/20/18 Subjective:: Feels well. Still not passing any gas or having bowel movement. But tolerating full liquid diet well. Wants some solid food. Reason For Visit: RIGHT LOWER QUADRANT ABDOMINAL PAIN Physical Exam Vital Signs: Temp Pulse Resp BP Pulse Ox 98.9 F 77 18 112/77 96 08/20/18 07:29 08/20/18 09:50 08/20/18 09:40 08/20/18 09:50 08/20/18 09:40 Intake & Output 08/19/18 08/20/18 08/21/18 06:59 06:59 06:59 Intake Total 2147 2050 Output Total 1315 1000 Balance 832 1050 General appearance: PRESENT: no acute distress, cooperative Respiratory exam: PRESENT: clear to auscultation geronimo Cardiovascular exam: PRESENT: RRR GI/Abdominal exam: PRESENT: other - Some bruising at the midportion of the wound otherwise wound is clean dry and intact with katlyn. Abdomen is soft nondistended with minimal tenderness. Extremities exam: PRESENT: other - No swelling and no tenderness Results Laboratory Results: 08/19/18 06:07 08/20/18 06:32 08/20/18 06:32 Sodium 140.3 Potassium 4.0 Chloride 105 Carbon Dioxide 25 Anion Gap 10 BUN 5 L Creatinine 0.58 Est GFR ( Amer) > 60 Est GFR (Non-Af Amer) > 60 Glucose 97 Calcium 8.9 Impressions: Limited or Localized CT 08/15/18 22:23 IMPRESSION: Appendix is fluid-filled and measures 6 mm in diameter. Mild wall thickening of the cecum with mild surrounding inflammatory stranding. Findings are ambiguous for appendicitis. No free air or abscess is seen. 2 mm nonobstructing stone in the lower pole right kidney. Assessment & Plan - Diagnosis (1) Ischemic cecum Is this a current diagnosis for this admission?: Yes Plan: Status post right hemicolectomy. Patient had concerns about the etiology of her ischemic cecum. Since her CT scan was done without IV contrast, unable to evaluate her mesenteric vessels well. We will plan to obtain a CT angiogram today. Will hydrate the patient prior to the study. We will go ahead and advance the diet to a cardiac diet. Possible discharge home tomorrow if she continues to do well.
[2018-08-20] MEDS: LOSARTAN POTASSIUM 50 MG TABLET PO SCH ×2 (13:14→21:17)
--- NOTE | 2018-08-20 16:23 | RADIOLOGY REPORT (SQ) ---
EXAM DESCRIPTION: CTA ABDOMEN/PELVIS W WO COMPLETED DATE/TIME: 08/20/2018 3:45 pm REASON FOR STUDY: Patient with recent cecal ischemia. COMPARISON: None. TECHNIQUE: CT scan of the abdomen and pelvis performed with and without intravenous contrast using h elical scanning technique with dynamic intravenous contrast injection. Images reviewed with lung, sof t tissue, and bone windows. Reconstructed coronal and sagittal MPR images reviewed. All images stored on PACS. Advanced 3D imaging as volume rendering, MIPS, SSD performed? yes All CT scanners at this facility use dose modulation, iterative reconstruction, and/or weight based d osing when appropriate to reduce radiation dose to as low as reasonably achievable (ALARA). [facility]: Dose Right [facility]: CareDose [facility]: Dose Right [facility]: Teradose 4D [facility]: Office Max CONTRAST TYPE AND DOSE: contrast/concentration: Isovue 350.00 mg/ml; Total Contrast Delivered: 44.0 ml; Total Saline Delivered: 74.0 ml RENAL FUNCTION: GFR > 60. LIMITATIONS: None. FINDINGS: NON-CONTRASTED IMAGIN mm stone lower pole right kidney. POST-CONTRAST IMAGING: AORTA AND VESSELS: High-grade stenosis of the proximal SMA. Estimated 50% stenosis of the proximal c eliac. A normal JACI is not visualized. No aneurysm. LUNG BASES: Small hiatal hernia. LIVER: Normal size. No masses or dilated ducts. SPLEEN: Normal size. No focal lesions. PANCREAS: No masses. No significant calcifications. No adjacent inflammation or peripancreatic fluid collections. Pancreatic duct not dilated. GALLBLADDER: No identified stones by CT criteria. No inflammatory changes to suggest cholecystitis. ADRENAL GLANDS: No significant masses or asymmetry. RIGHT KIDNEY AND URETER: No solid mass or hydronephrosis. LEFT KIDNEY AND URETER: No solid mass or hydronephrosis. RETROPERITONEUM: No retroperitoneal adenopathy, hemorrhage or masses. BOWEL AND PERITONEAL CAVITY: Cecum has been resected. No ascites. No adenopathy. APPENDIX: Surgically absent. ABDOMINAL WALL: Skin katlyn. BONY STRUCTURES: No acute findings. 3-D IMAGING: Confirms the above findings. OTHER: Calcified uterine fibroids. 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 Estimated 75% stenosis of the pro ximal SMA. TECHNICAL DOCUMENTATION: JOB ID: [id number] Quality ID # [id number]: Final reports with documentation of one or more dose reduction techniques (e.g., Au tomated exposure control, adjustment of the mA and/or kV according to patient size, use of iterative reconstruction technique) 2010 [employer]- All Rights Reserved Reading location - IP/workstation name: [email or web address]
[2018-08-20] MEDS: ATORVASTATIN CALCIUM 80 MG TABLET PO SCH (21:17)
[2018-08-20] MEDS: ERTAPENEM SODIUM 1 GM in NORMAL SALINE 50 ML IV SCH (21:17)
--- NOTE | 2018-08-20 22:20 | PDOC PROGRESS REPORT ---
Subjective Reason For Visit: RIGHT LOWER QUADRANT ABDOMINAL PAIN Physical Exam Vital Signs: Temp Pulse Resp BP Pulse Ox 98.3 F 84 17 143/98 H 98 08/20/18 19:37 08/20/18 19:37 08/20/18 19:37 08/20/18 19:37 08/20/18 19:37 Intake & Output 08/19/18 08/20/18 08/21/18 06:59 06:59 06:59 Intake Total 2147 2050 891 Output Total 1315 1000 700 Balance 832 1050 191 Results Laboratory Results: 08/19/18 06:07 08/20/18 06:32 08/20/18 06:32 Sodium 140.3 Potassium 4.0 Chloride 105 Carbon Dioxide 25 Anion Gap 10 BUN 5 L Creatinine 0.58 Est GFR ( Amer) > 60 Est GFR (Non-Af Amer) > 60 Glucose 97 Calcium 8.9 Impressions: Limited or Localized CT 08/15/18 22:23 IMPRESSION: Appendix is fluid-filled and measures 6 mm in diameter. Mild wall thickening of the cecum with mild surrounding inflammatory stranding. Findings are ambiguous for appendicitis. No free air or abscess is seen. 2 mm nonobstructing stone in the lower pole right kidney. 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 Estimated 75 % stenosis of the proximal SMA. Assessment & Plan - Diagnosis (1) Ischemic cecum Is this a current diagnosis for this admission?: Yes Plan: Status post right hemicolectomy. Patient doing well after surgery. CT angiogram demonstrates 50% stenosis of the celiac and 75% stenosis of the SMA. Patient will need a referral to vascular surgery as an outpatient for possible intervention. Will discuss with vascular surgery tomorrow and arrange follow- up.
[2018-08-21] MEDS: ALBUTEROL SULFATE 0.083% NEB 2.5 MG/3 ML AMPUL NEB PRN (01:23)
[2018-08-21] MEDS: RINGERS SOLUTION,LACTATED 1,000 ML IV PRN (05:47)
[2018-08-21] MEDS: GABAPENTIN 300 MG CAPSULE PO SCH ×2 (05:48→13:46)
[2018-08-21] MEDS: LANSOPRAZOLE 30 MG TAB.RAP.DR PO SCH (05:48)
[2018-08-21] MEDS: TICAGRELOR 90 MG TABLET PO SCH (05:48)
[2018-08-21] MEDS: FAMOTIDINE INJ/PF 20 MG/2 ML SDV IV SCH (09:06)
[2018-08-21] MEDS: HYDROCODONE/ACETAMINOPHEN 10-325 MG TABLET PO PRN (09:06)
[2018-08-21] MEDS: AMLODIPINE BESYLATE 5 MG TABLET PO SCH (09:06)
[2018-08-21] MEDS: ASPIRIN 81 MG TABLET, ENT COATED PO SCH (09:06)
[2018-08-21] MEDS: LOSARTAN POTASSIUM 50 MG TABLET PO SCH (09:06)
[2018-08-21] MEDS: TIOTROPIUM BROMIDE DPI 5 CAP/KIT (18 MCG/CAP) IH SCH (09:06)
--- NOTE | 2018-08-21 18:12 | PDOC PROGRESS REPORT ---
Subjective Progress Note for:: 08/21/18 Subjective:: comfortable, tolerates po well Reason For Visit: RIGHT LOWER QUADRANT ABDOMINAL PAIN Physical Exam Vital Signs: Temp Pulse Resp BP Pulse Ox 98.0 F 70 20 139/76 H 95 08/21/18 12:33 08/21/18 12:33 08/21/18 12:33 08/21/18 12:33 08/21/18 12:33 Intake & Output 08/20/18 08/21/18 08/22/18 06:59 06:59 06:59 Intake Total 2050 1941 1000 Output Total 1000 700 900 Balance 1050 1241 100 General appearance: PRESENT: no acute distress GI/Abdominal exam: PRESENT: normal bowel sounds, soft, other - wound c/d/i Results Laboratory Results: 08/19/18 06:07 08/20/18 06:32 Impressions: Limited or Localized CT 08/15/18 22:23 IMPRESSION: Appendix is fluid-filled and measures 6 mm in diameter. Mild wall thickening of the cecum with mild surrounding inflammatory stranding. Findings are ambiguous for appendicitis. No free air or abscess is seen. 2 mm nonobstructing stone in the lower pole right kidney. 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 Estimated 75 % stenosis of the proximal SMA. Assessment & Plan - Diagnosis (1) Arterial stenosis Is this a current diagnosis for this admission?: Yes - Plan Summary Plan Summary: A/ S/p bowel resecytion 75% stenosis of SMA 50% stenosis celiac artery tolerating po well PE unremarkable P/ home today follow up with [facility] in 2 weeks Resume diet and meds Tylenol and Aleve as needed for pain Shower only x 2 weeks, then can bathe No wound care needed, do no remove bandages resume all activities including driving and light exercise: no lifting > 10 pounds x 4 months no straining or core exercises x 4 months Follow up with Vascular Surgeon Dr. Harshal Leslie at [facility] for stenting of abdominal arteries within 1 month
[2018-08-21 18:18] VITALS: BP 112/77
--- NOTE | 2018-08-22 17:56 | DISCHARGE SUMMARY E ---
Discharge Summary NAME: TAHIR HALL : 1955 AGE: 62Y ADMITTED: 08/16/2018 DISCHARGED: 08/21/2018 FINAL DIAGNOSES: 1. Terminal ileum, cecum ischemia. 2. Chronic obstructive pulmonary disease. 3. Hypercholesterolemia. PROCEDURE: On 08/16, the patient underwent exploratory laparotomy, ileocecectomy. COMPLICATION: None. HOSPITAL COURSE: This is a 62-year-old female admitted on 08/16/2018 with abdominal pain. Found to have ischemia of the terminal ileum and cecum. She underwent exploratory laparotomy and ileocecectomy, primary anastomosis. Postop course was unremarkable. Vital signs remained stable. Blood work within normal limits. Her physical exam was unremarkable. The bowel function returned and diet was advanced and well-tolerated. On the day of discharge the patient had stable vital signs. Her physical exam was unremarkable. Wounds clean, dry, intact. Abdomen soft. The patient able tolerate p.o. well. 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 DISCHARGE ORDERS: 1. Discharge home on 08/21/2018. 2. She was given follow up appointment for general surgery clinic in 2 weeks with [facility] G[facility]. 3. She is instructed to follow a regular diet, drink plenty of fluids. 4. Use Tylenol for pain. 5. Resume her home medications. 6. Shower only for 2 weeks then she can bathe. 7. No wound care needed. 8. The patient has also been instructed to follow up with Dr. Harshal Leslie, at [facility] for placement of a stent in the celiac and/or the superior mesenteric artery. 9. She is instructed to resume all her activities including driving. 10. No heavy lifting more than 10 pounds for 4 months. No straining for more than 4 months. 11. No core exercises for 4 months. DICTATING PHYSICIAN: URIAH DELGADO M.D. [id number] PHY#: [id number] ID: [id number] JOB#: [id number] ACCT: [id number] cc:Heidy HOGAN, M.D. > [facility]
== END 2018-08-21 18:35 | disposition home or self-care (01) | DRG 331 ==
LOC: ER 21:10 → EH 08-16 00:15 → UNDOADMIN 08-16 00:15 → EH 08-16 02:50 → 2N 08-16 02:50
PROVIDERS: ADMIT Surgery; ATTEND Surgery
PROC: 0DTH0ZZ Resection of Cecum, Open Approach (ICD-10-PCS; principal; 2018-08-16 11:00)
PROC: 3E0F73Z Introduction of Anti-inflammatory into Respiratory Tract, Via Natural or Artificial Opening (ICD-10-PCS; 2018-08-17)
DX: K55.9 Vascular disorder of intestine, unspecified (principal); J44.9 Chronic obstructive pulmonary disease, unspecified; E78.00 Pure hypercholesterolemia, unspecified; I10 Essential (primary) hypertension; I73.9 Peripheral vascular disease, unspecified; I25.10 Atherosclerotic heart disease of native coronary artery without angina pectoris; K21.9 Gastro-esophageal reflux disease without esophagitis; M19.90 Unspecified osteoarthritis, unspecified site; N20.0 Calculus of kidney; G62.9 Polyneuropathy, unspecified; F17.210 Nicotine dependence, cigarettes, uncomplicated; I45.81 Long QT syndrome; Z85.118 Personal history of other malignant neoplasm of bronchus and lung; Z90.2 Acquired absence of lung [part of]; Z95.5 Presence of coronary angioplasty implant and graft; Z79.01 Long term (current) use of anticoagulants; Z82.61 Family history of arthritis; Z83.3 Family history of diabetes mellitus; Z82.49 Family history of ischemic heart disease and other diseases of the circulatory system
CPT/HCPCS: 36415; 74174; 76380; 790; 80048; 80053; 81001; 82550; 83690; 84484; 85025; 85027; 86850; 86900; 86901; 87040; 88307; 93005; 93010; 94640; 94799; 96361; 96374; 99285; C9290; J0131; J0330; J1335; J1885; J2250; J2270; J2370; J2405; J2704; J3010; J3490; J7040; J7120; J7620; S0028